=== PATIENT | male | born 1995 | race Caucasian/White ===

== ENCOUNTER 2016-12-30 01:02 | Emergency (ER) | payer OTHER ==
[2016-12-30 01:09] VITALS: TEMP 98.1; O2SAT 94
--- NOTE | 2016-12-30 01:14 | EDPHY ---
H & P Stated Complaint: + ETOH, FELL BACKWARDS AND HIT HEAD ON CURB, - LOC HPI/ROS: CHIEF COMPLAINT: Cut on back of head HISTORY OF PRESENT ILLNESS: This is a 21-year-old student admits to alcohol use tonight. He lost his balance, fell backwards, and hit the back of his head. There was no loss of consciousness. He returned home, showered, realize that he had a laceration, and came to the emergency department with a friend. He denies headache. He does not feel confused. He has not had visual changes, difficulty with speech, numbness, or weakness. He has no back or neck pain. He is not aware of other injuries. REVIEW OF SYSTEMS: A ten point review of systems was performed and is negative with the exception of the items mentioned in the HPI. Source: Patient Exam Limitations: No limitations - Personal History Current Tetanus Diphtheria and Acellular Pertussis (TDAP): Yes - Medical/Surgical History Hx Asthma: No Hx Chronic Respiratory Disease: No Hx Diabetes: No Hx Cardiac Disease: No Hx Renal Disease: No Hx Cirrhosis: No Hx Alcoholism: No Hx HIV/AIDS: No Hx Splenectomy or Spleen Trauma: No Other PMH: appy - Social History Smoking Status: Current some day smoker Alcohol Use: Occasionally Additional Social History: He is a student, scheduled to graduate in January. His degree will be in journalism. - Physical Exam Exam: General Appearance: Alert. Vital signs reviewed. Blood pressure 124/84, heart rate 102 at triage. Head: Four cm laceration, horizontally oriented, on the posterior left parietal scalp. No active bleeding. Eyes: Pupils equal and round, no conjunctival injection, no discharge. Anicteric. ENT, Mouth: Mucous membranes are moist, no oropharyngeal erythema or edema. Neck: Nontender to palpation over the cervical spine. No pain with active range of motion of his neck. No lymphadenopathy, supple. Respiratory: Lungs are clear to auscultation; no wheezes, rales, or rhonchi. Cardiovascular: Regular rate and rhythm; no murmur, rub, or gallop. Gastrointestinal: Abdomen is soft and nontender, no masses or organomegaly, bowel sounds normal. Skin: Warm and dry, no rashes on exposed skin, normal color. Back: Nontender to palpation over the thoracolumbar spine. Extremities: No lower extremity edema, no calf tenderness or swelling. Neurological: Alert and oriented. Moving all four extremities easily and equally. Cranial nerves II through XII are examined and are intact (visual acuity not tested). Strength is 5 over 5 bilaterally with testing of all major motor groups. Sensation is intact to light touch over all 4 extremities. Deep tendon reflexes are 2+ in the biceps and knees bilaterally. Gait is normal. Psychiatric: Normal affect. Cooperative. No agitation. Constitutional: Initial Vital Signs Temperature (C) 36.7 C 12/30/16 01:06 Heart Rate 102 H 12/30/16 01:06 Respiratory Rate 18 12/30/16 01:06 Blood Pressure 124/84 H 12/30/16 01:06 O2 Sat (%) 94 12/30/16 01:06 O2 Delivery Mode Room Air Allergies/Adverse Reactions: No Known Allergies Allergy (Unverified 11/20/14 15:34) Home Medications: Medication Instructions Recorded NK [No Known Home Meds] 12/30/16 Medical Decision Making Procedures: Procedure: Laceration repair. Verbal consent was obtained from the patient. The 4 cm laceration on the left posterior parietal scalp was anesthetized in the usual fashion. The wound was irrigated, draped and explored to its base with a gloved finger. There were no deep structures involved. The galea was intact. The wound was repaired with surgical terrie, 15 terrei total . The wound repair was single air. The procedure was performed by myself. ED Course/Re-evaluation: 21-year-old with a 4 cm scalp laceration. He was observed in the emergency department for 2 hours and remained neurologically intact. The laceration was repaired with surgical terrie. Wound care instructions were given. He was observed in the emergency department for over 2 hours. During that time he has been awake, alert, completely appropriate. He does admit to drinking alcohol earlier. I do not feel that he needs intracranial imaging. He has a normal neurologic exam. Differential Diagnosis: I considered a differential diagnosis that includes but is not limited to intracranial hemorrhage, skull fracture, scalp laceration, cephalohematoma, abrasion, and cervical spine injury. Departure - Departure Disposition: Home, Routine, Self-Care Clinical Impression: Scalp laceration Qualifiers: Encounter type: initial encounter Qualified Code(s): S01.01XA - Laceration without foreign body of scalp, initial encounter Condition: Good Instructions: Laceration (ED) Additional Instructions: Do not wash her hair for 24 hours. After that it is located gently wash her hair. Try to keep the terrie clean and dry. There 15 terrie. They need to be removed in 5 days. If you have headache it is fine to take Tylenol, 650 mg every 4 hours. You can also take ibuprofen 400 mg every 8 hours. You can take both of these medications together or alternate them, if needed. Referrals: [facility],. [Clinic] - As per Instructions
[2016-12-30 03:31] VITALS: BP 134/78; PULSE 91; RESP 16
== END 2016-12-30 03:31 | disposition home or self-care (01) ==
PROC: 0HQ0XZZ Repair Scalp Skin, External Approach (ICD-10-PCS; principal; 2016-12-30)
DX: S01.01XA Laceration without foreign body of scalp, initial encounter (principal); F17.200 Nicotine dependence, unspecified, uncomplicated; W01.198A Fall on same level from slipping, tripping and stumbling with subsequent striking against other object, initial encounter